=== PATIENT | female | born 1970 | race Caucasian/White ===

== ENCOUNTER 2017-09-04 21:09 | Inpatient (IN) | payer OTHER ==
[2017-09-04 20:00] VITALS: BP 151/67; PULSE 88; RESP 18; TEMP 97.4; O2SAT 100
[2017-09-04] MEDS ORDERED: MEGESTROL ACETATE 40 MG TAB PO ONE (21:30)
--- NOTE | 2017-09-04 21:58 | HHI.HP ---
HPI Service CP Hospitalists Primary Care Physician No Primary Care Physician Admission Diagnosis Menorrhagia with symptomatic anemia Chief Complaint: Lightheadedness, fatigue, palpitations Travel History International Travel<30 Days: No Contact w/Intl Traveler <30 Da: No History of Present Illness 47-year-old female history of heavy vaginal bleeding due to fibroids presents as transfer for admission to [facility] for heavy vaginal bleeding with hemoglobin of 5.5. She has associated lightheadedness, weakness, dizziness, and palpitations. This current menstrual cycle has lasted 10 days. Associated symptoms have been ongoing for the past 2 days. In the beginning this menstrual cycle she was soaking through 1 large tampon per hour. She has also been having large clots. She has been dealing with severe vaginal bleeding for the past 2 years but has not followed up with an COUNTY DEMONSTRATOR. Never needed to be hospitalized for anemia and never required a blood transfusion in the past. Does not been following regularly with primary care physician so is not sure of her baseline hemoglobin. She does not take iron. She denies abdominal pain or significant cramping. No other chronic medical conditions or daily medications. She does not have an COUNTY DEMONSTRATOR. She had a tubal ligation in 1996. Vital signs have remained stable. She was a little tachycardic initially. Review of Systems Constitutional: COMPLAINS OF: Fatigue, Dizziness Endocrine: COMPLAINS OF: Abnorml menstrual pattern, DENIES: Heat/cold intolerance, Polydipsia, Polyuria, Polyphagia Eyes: DENIES: Blurred vision, Diplopia, Eye inflammation, Eye pain, Vision loss , Photosensitivity, Double Vision Ears, nose, mouth, throat: DENIES: Tinnitus, Hearing loss, Vertigo, Nasal discharge, Oral lesions, Throat pain, Hoarseness, Ear Pain, Running Nose, Epistaxis, Sinus Pain, Toothache, Odynophagia Respiratory: COMPLAINS OF: Shortness of breath, DENIES: Apneas, Cough, Snoring , Wheezing, Hemoptysis, Sputum production Cardiovascular: COMPLAINS OF: Palpitations, DENIES: Chest pain, Syncope, Dyspnea on Exertion, PND, Lower Extremity Edema, Orthopnea, Claudication Gastrointestinal: DENIES: Abdominal pain, Black stools, Bloody stools, BRB per rectum, Constipation, Diarrhea, GERD, Nausea, Reflux, Vomiting, Difficulty Swallowing, Anorexia, See HPI Genitourinary: COMPLAINS OF: Abnormal vaginal bleeding, DENIES: Dysmenorrhea, Dyspareunia, Sexual dysfunction, Urinary frequency, Urinary incontinence, Urgency, Hematuria, Dysuria, Nocturia, Vaginal discharge Integumentary: DENIES: Abnormal pigmentation, Pruritus, Rash, Nail changes, Breast masses, Breast skin changes, Nipple discharge Hematologic/lymphatic: DENIES: Bruising, Lymphadenopathy Immunologic/allergic: DENIES: Eczema, Urticaria Neurologic: DENIES: Abnormal gait, Headache, Localized weakness, Paresthesias, Seizures, Speech Problems, Tremor, Poor Balance Psychiatric: DENIES: Anxiety, Confusion, Mood changes, Depression, Hallucinations, Agitation, Suicidal Ideation, Homicidal Ideation, Delusions, History of Bipolar, History of Schizophrenia Past Family Social History Past Medical History Obesity, uterine fibroids, abnormal uterine bleeding Past Surgical History Bilateral tubal ligation 1996 Reported Medications None Allergies: Coded Allergies: No Known Allergies (Unverified , 09/04/17) Family History No bleeding disorders. 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 SKIN: No rashes, ecchymoses or lesions. Cool and dry. No petechiae. HEAD: Atraumatic. Normocephalic. No temporal or scalp tenderness. EYES: Pupils equal round and reactive. Extraocular motions intact. No scleral icterus. No injection or drainage. ENT: Nose without bleeding, purulent drainage or septal hematoma. Airway patent. NECK: Trachea midline. No JVD or lymphadenopathy. Supple, nontender, no meningeal signs. CARDIOVASCULAR: Regular rate and rhythm with soft 1/6 systolic ejection murmur. No gallop or rub. RESPIRATORY: Clear to auscultation. Breath sounds equal bilaterally. No wheezes , rales, or rhonchi. GASTROINTESTINAL: Abdomen soft, non-tender, nondistended. No hepato-splenomegaly , or palpable masses. No guarding. MUSCULOSKELETAL: Extremities without clubbing, cyanosis, or edema. No joint tenderness, effusion, or edema noted. No calf tenderness. NEUROLOGICAL: Awake and alert. Cranial nerves II through XII intact. Motor and sensory grossly within normal limits. Five out of 5 muscle strength in all muscle groups. Normal speech. Caprini VTE Risk Assessment Caprini VTE Risk Assessment: No/Low Risk (score <= 1) Caprini Risk Assessment Model Point Value = 1 Point Value = 2 Point Value = 3 Point Value = 5 Age 41-60 Minor surgery BMI > 25 kg/m2 Swollen legs Varicose veins or History of unexplained or recurrent spontaneous Oral contraceptives or hormone replacement Sepsis (< 1 month) Serious lung disease, including pneumonia (< 1 month) Abnormal pulmonary function Acute myocardial infarction Congestive heart failure (< 1 month) History of inflammatory bowel disease Medical patient at bed rest Age 61-74 Arthroscopic surgery Major open surgery (> 45 min) Laparoscopic surgery (> 45 min) Malignancy Confined to bed (> 72 hours) Immobilizing plaster cast Central venous access Age >= 75 History of VTE Family history of VTE Factor V Leiden Prothrombin [id number] Lupus anticoagulant Anticardiolipin antibodies Elevated serum homocysteine Heparin-induced thrombocytopenia Other congenital or acquired thrombophilia Stroke (< 1 month) Elective arthroplasty Hip, pelvis, or leg fracture Acute spinal cord injury (< 1 month) Prophylaxis Regimen Total Risk Factor Score Risk Level Prophylaxis Regimen 0-1 Low Early ambulation 2 Moderate Order ONE of the following: *Sequential Compression Device (SCD) *Heparin 5000 units SQ BID 3-4 Higher Order ONE of the following medications: *Heparin 5000 units SQ TID *Enoxaparin/Lovenox 40 mg SQ daily (WT < 150 kg, CrCl > 30 mL/min) *Enoxaparin/Lovenox 30 mg SQ daily (WT < 150 kg, CrCl > 10-29 mL/min) *Enoxaparin/Lovenox 30 mg SQ BID (WT < 150 kg, CrCl > 30 mL/min) AND/OR *Sequential Compression Device (SCD) 5 or more Highest Order ONE of the following medications: *Heparin 5000 units SQ TID (Preferred with Epidurals) *Enoxaparin/Lovenox 40 mg SQ daily (WT < 150 kg, CrCl > 30 mL/min) *Enoxaparin/Lovenox 30 mg SQ daily (WT < 150 kg, CrCl > 10-29 mL/min) *Enoxaparin/Lovenox 30 mg SQ BID (WT < 150 kg, CrCl > 30 mL/min) AND *Sequential Compression Device (SCD) Assessment and Plan Problem List: (1) Menorrhagia, premenopausal ICD Codes: N92.4 - Excessive bleeding in the premenopausal period Status: Chronic Plan: Seems to be worse of late with current menses. Patient somewhat symptomatic with hemoglobin of 5.5. We'll transfuse 2 units PRBCs. Vital signs relatively stable. THERMAL ENGINEER consult. Pelvic ultrasound ordered. Provide dose of Megace based on THERMAL ENGINEER recommendations to ER provider. (2) Anemia ICD Codes: D64.9 - Anemia, unspecified Plan: Transfusion as noted. Vital signs relatively stable. Code Status full Discussed Condition With Patient and ER provider Physician Certification 2 Midnight Certification Type: Admission for Inpatient Services Order for Inpatient Services The services are ordered in accordance with Medicare regulations or non- Medicare payer requirements, as applicable. In the case of services not specified as inpatient-only, they are appropriately provided as inpatient services in accordance with the 2-midnight benchmark. Estimated LOS (days): 2 days is the estimated time the patient will need to remain in the hospital, assuming treatment plan goals are met and no additional complications. Post-Hospital Plan: Home Problem Qualifiers (1) Anemia: Qualified Codes: D50.0 - Iron deficiency anemia secondary to blood loss ( chronic) Simone Gleason MD PhD Sep 04, 2017 21:58
[2017-09-04 23:05] VITALS: BP 128/60; PULSE 84; RESP 18; TEMP 97.1; O2SAT 99
[2017-09-04 23:27] VITALS: BP 138/65; PULSE 92; RESP 18; TEMP 97.7; O2SAT 98
[2017-09-05] VITALS: BP 123/60; PULSE 101; RESP 18; TEMP 97.3; O2SAT 97
[2017-09-05 04:00] VITALS: BP 139/61; PULSE 79; RESP 18; TEMP 97.1; O2SAT 98
[2017-09-05 08:00] VITALS: BP 140/65; PULSE 106; RESP 18; TEMP 97.8; O2SAT 98
--- NOTE | 2017-09-05 09:35 | PD.CONS ---
HPI Chief Complaint Vaginal bleeding resulting in anemia Date Seen: Sep 05, 2017 Time Seen: 08:30 Travel History International Travel<30 Days: No Contact w/Intl Traveler<30Days: No Known Affected Area: No History of Present Illness HPI Patient is 47-year-old white female para 2 status post tubal ligation presents with anemia secondary to heavy menstrual flow. Patient's bleeding about 10-12 days. These are heavy periods with large clots but no pain. She presents with a hemoglobin of 5.5 hematocrit 21%. She states she's been years of heavy menstrual flows and never really tried any treatment for this. She just wanted to" stick it out" she says. Last Pap smear was 8 years ago and the last ultrasound was 15 years ago that she does have a history of fibroids in the uterus. Menstrual cycles are approximately every month but it begun heavier and heavier over the years. She states that when she was very young she took control pills well tolerated them well but only get this temporarily and she has a tubal ligation of her last baby[ both babies born vaginally] Para: 2 : 2 Last Menstrual Period: Sep 05, 2017 Miscarriage: 0 : 0 History Obstetric History Obstetric History 2 vaginal deliveries Social History Alcohol Use: No Tobacco Use: No Substance Abuse: No Allergies-Medications (Allergen,Severity, Reaction): Coded Allergies: No Known Allergies (Unverified , 09/04/17) Home Meds No Active Prescriptions or Reported Meds Review of Systems General / Constitutional: No: Fever, Weight Gain, Chills, Other Eyes: No: Diploplia, Blurred Vision, Visual changes, Pain, Photophobia HENT: No: Headaches, Vertigo, Lightheadedness Cardiovascular: No: Irregular Rhythm, Chest Pain or Discomfort, Palpitations, Tachycardia, Syncope, Varicosities, Edema, Cyanosis Respiratory: No: Cough, Short of Breath, Other Gastrointestinal: No: Nausea, Vomiting, Diarrhea Genitourinary: Vaginal Bleeding, No: Decreased Urinary Output, Oliguria Musculoskeletal: No: Limited ROM, Weakness, Cramping, Edema, Pain Skin: No Rash, No Itching, No Dryness, No Lumps, No Change in Pigmentation, No Change in Nails, No Alopecia, No Lesions Neurologic: No: Weakness, Dizziness, Syncope, Focal Abnormalities, Coordination Problem, Headache, Slurred Speech, Seizures Psychiatric: No: Depression, Suicidal Ideations, Homicidal Ideation Endocrine: No: Heat Intolerance, Cold Intolerance, Polydipsia, Polyuria, Other Physical Exam Vital Signs Date Time Temp Pulse Resp B/P (MAP) Pulse Ox O2 Delivery O2 Flow Rate FiO2 09/05/17 08:00 97.8 106 18 140/65 (90) 98 09/05/17 04:00 97.1 79 18 139/61 (87) 98 09/05/17 00:00 97.3 101 18 123/60 (81) 97 09/04/17 23:27 97.7 92 18 138/65 98 09/04/17 23:05 97.1 84 18 128/60 99 09/04/17 20:00 97.4 88 18 151/67 (95) 100 Narrative GENERAL: Well-nourished, well-developed obese patient. SKIN: Warm and dry. HEAD: Normocephalic and atraumatic. EYES: No scleral icterus. No injection or drainage. ENT: No nasal drainage noted. Mucous membranes pink. Airway patent. NECK: Supple, trachea midline. No JVD. CARDIOVASCULAR: Regular rate and rhythm without murmurs, gallops, or rubs. RESPIRATORY: Breath sounds equal bilaterally. No accessory muscle use. BREASTS: Bilateral exam showed no masses , no retractions, no nipple discharge. ABDOMEN/GI: Abdomen soft obese, non-tender, bowel sounds present, no rebound, no guarding : External Genitalia: intact and normal in appearance BUS glands: [-] Cervix: [normal-] uterus is enlarges approx 18 wk size but obesity compromises exam , no adnexal masses noted , nontender EXTREMITIES: No cyanosis or edema. BACK: Nontender without obvious deformity. No CVA tenderness. NEUROLOGICAL: Awake and alert. Motor and sensory grossly within normal limits. Five out of 5 muscle strength in all muscle groups. Normal speech. Data Data Orders Orders Admit To Inpatient (09/04/17 ) Inpatient Certification (09/04/17 ) Vital Signs (Adult) KAREN.Q4H (09/04/17 21:29) Activity Oob With Assistance (09/04/17 21:29) Diet Regular Basic (09/05/17 Breakfast) Megestrol (Megace) (09/04/17 21:30) Blood Product Administration (09/04/17 21:29) Red Blood Cells (Rbc) (09/04/17 21:29) Consult Gynecology (09/04/17 ) Beta Hcg (Quant/Titer) (09/04/17 21:34) Complete Blood Count With Diff (09/05/17 06:00) Scd Bilateral/Knee High KAREN.QSHIFT (09/04/17 21:58) Sleeve, Knee Sequential Héctor Pr (09/04/17 22:09) (Hub Use Only)Inp Phy Cons/Ref (09/04/17 ) Pneumococcal-23 Polyvalent Inj (Pneumova (09/06/17 10:00) Us Pelvis Comp W Transvaginal (09/05/17 ) MDM Interpretation(s) Patient's 47-year-old white female para 2 with a long history of menorrhagia and hypermenorrhea with resulting anemia at this time. She has received 2 units of blood and the pending the posttransfusion hematocrit. She has just stopped bleeding at this point only having minimal spotting now and she's never any pain with any of this. Plan Patient was counseled as to treatment options for heavy periods and prolonged periods.Will need to await the US findings prior to definitive treatment plan however, Medically she could be treated with potentially hormone therapy in the form of control pills she is a nonsmoker 47 years old and potentially could take pills short-term for 12--18 months. Also she could use either injectable Provera, or an IUD Mirena that has a side effect of minimal or no periods due to Progestational effect. Also could be related using transexamic acid on a semi-regular basis to keep her flow minimal or decreased. Surgically the patient could have endometrial ablation D&C hysteroscopy which has a 80% chance of decreasing her flow to much less than she seeing now and a 50% chance of no more periods and this procedure could be done in an office setting but usually done as a one-day surgery. Regardless the pt should have an endometrial biopsy to R/O malignancy; Dr. Zavaleta is a ACOUSTICS TEACHER doctor vice president of talent acquisition as well as when the patient came in, and the patient has her phone number for the office Diagnosis: hypermenorrhea fibroids Scripts No Active Prescriptions or Reported Meds Mukesh Navarrete II, MD Sep 05, 2017 09:35
--- NOTE | 2017-09-05 09:56 | HHI.PR ---
Subjective Remarks Patient reports feeling much better no longer dizzy, no longer having palpations reports vagina bleeding has decreased greatly after Megace Objective Vitals Vital Signs Date Time Temp Pulse Resp B/P (MAP) Pulse Ox O2 Delivery O2 Flow Rate FiO2 09/05/17 08:00 97.8 106 18 140/65 (90) 98 09/05/17 04:00 97.1 79 18 139/61 (87) 98 09/05/17 00:00 97.3 101 18 123/60 (81) 97 09/04/17 23:27 97.7 92 18 138/65 98 09/04/17 23:05 97.1 84 18 128/60 99 09/04/17 20:00 97.4 88 18 151/67 (95) 100 Objective Remarks GENERAL: This is a well-nourished, well-developed patient, in no apparent distress. CARDIOVASCULAR: Regular rate and rhythm RESPIRATORY: Clear to auscultation. Breath sounds equal bilaterally. GASTROINTESTINAL: Abdomen soft, non-tender, nondistended. Normal active bowel sounds MUSCULOSKELETAL: Extremities without clubbing, cyanosis, or edema. NEURO: Alert & Oriented x4 to person, place, time, situation. Moves all ext x4 Procedures none A/P Problem List: (1) Menorrhagia, premenopausal ICD Codes: N92.4 - Excessive bleeding in the premenopausal period Status: Chronic Plan: 47 year old patient dx with uterine fibroids 1996 Heavy menses for the past 4 months Seems to be worse of late with current menses for the past 12 days On admission patient symptomatic with palpitations and dizziness with standing hemoglobin of 5.5. s/p transfuse 2 units PRBCs (09/04), symptoms improved MVC 65.4 iron profile requested on the blood drawn prior to transfusion TILE DITCHER consult, appreciate input Pelvic ultrasound pending Provide dose of Megace based on TILE DITCHER recommendations to ER provider. DVT prophylaxis with SCDs (2) Anemia ICD Codes: D64.9 - Anemia, unspecified Plan: see above Problem Qualifiers (1) Anemia: Qualified Codes: D50.0 - Iron deficiency anemia secondary to blood loss ( chronic) Aspen Christianson Sep 05, 2017 09:56
[2017-09-05 10:59] LABS: AUTOMATED NEUTROPHIL # 9.2 TH/MM3 (1.8-7.7); BASOPHIL # 0.1 TH/MM3 (0-0.2); BASOPHIL % 0.5 % (0.0-2.0); EOSINOPHIL # 0.3 TH/MM3 (0-0.4); EOSINOPHIL % 2.7 % (0.0-4.0); HEMATOCRIT 24.2 % (35.0-46.0); LYMPH % 12.7 % (9.0-44.0); LYMPHOCYTE # 1.5 TH/MM3 (1.0-4.8); MEAN CELL VOLUME 64.3 FL (80.0-100.0); MEAN CORPUSCULAR HEMOGLOBIN 19.8 PG (27.0-34.0); MEAN CORPUSCULAR HGB CONC 30.7 % (32.0-36.0); MONO % 6.3 % (0.0-8.0); NEUT % 77.8 % (16.0-70.0); PLATELET COUNT 349 TH/MM3 (150-450); RED BLOOD COUNT 3.76 MIL/MM3 (4.00-5.30); RED CELL DISTRIBUTION WIDTH 26.6 % (11.6-17.2); WHITE BLOOD COUNT 11.8 TH/MM3 (4.0-11.0)
[2017-09-05 11:05] LABS: HEMO FLAGS AUTO DIFF
[2017-09-05 11:29] LABS: BETA HCG QUANT LESS THAN 1 MIU/ML (0-5)
--- NOTE | 2017-09-05 11:37 | RADRPT ---
EXAM DATE/TIME: 09/05/2017 10:26 [facility] COMPARISON: No previous studies available for comparison. INDICATIONS : Abnormal uterine bleeding. Lightheaded, dizziness. weakness. MEDICAL HISTORY : GERD. Fibroids. SURGICAL HISTORY : Tubal ligation. ENCOUNTER: Initial ACUITY: 2 weeks PAIN SCORE: 1/10 LOCATION: Bilateral pelvis MEASUREMENTS: UTERUS: 17.7 x 9.5 x 11.7 cm ENDOMETRIAL STRIPE: >20 mm RIGHT OVARY: 3.5 x 2.7 x 3.4 cm LEFT OVARY: 6.8 x 5.4 x 6.2 cm FINDINGS: UTERUS: Marked endometrial thickening is identified. Small amount of fluid is identified in the endometrial c anal. The uterus is enlarged. There are 2 myometrial lesions. A cystic lesion measuring 5.3 cm in siz e is identified in the body of the uterus. A solid myometrial mass is identified in the body the uter us measuring 3.7 cm. RIGHT OVARY: A right ovary contains a 1.9 cm cyst. LEFT OVARY: The left artery is enlarged. 2 dominant cysts are identified. One measuring 4.2 cm and the second of 2.7 cm. Normal blood flow is identified. MISCELLANEOUS: No free fluid. CONCLUSION: 1. Marked endometrial thickening. Proliferative versus neoplastic process needs to be considered. 2. Solid myometrial mass characteristic of a small leiomyoma. 3. Bilateral ovarian cysts with 4.2 cm dominant left ovarian cyst. Alexey Chaney MD on September 05, 2017 at 11:28 Board Certified Radiologist. This report was verified electronically.
[2017-09-05 11:39] LABS: SCAN/DIFF AUTO DIFF CONFIRMED
[2017-09-05 12:00] VITALS: BP 136/62; PULSE 82; RESP 16; TEMP 97.3; O2SAT 99
[2017-09-05] MEDS ORDERED: FERR325T18 PO (12:41)
[2017-09-05] MEDS ORDERED: SODIUM CHLOR 0.9% 250 ML INJ 250 ML IV ONE (12:45)
--- NOTE | 2017-09-05 13:26 | HHI.DS ---
Discharge Summary Admission Date Sep 04, 2017 at 21:19 Discharge Date: Sep 05, 2017 Admitting Diagnosis Menorrhagia with symptomatic anemia (1) Menorrhagia, premenopausal ICD Codes: N92.4 - Excessive bleeding in the premenopausal period Status: Chronic (2) Anemia ICD Codes: D64.9 - Anemia, unspecified Consultants Dr. Navarrete Procedures none Brief History 47-year-old female history of heavy vaginal bleeding due to fibroids presents as transfer for admission to [facility] for heavy vaginal bleeding with hemoglobin of 5.5. She has associated lightheadedness, weakness, dizziness, and palpitations. This current menstrual cycle has lasted 10 days. Associated symptoms have been ongoing for the past 2 days. In the beginning this menstrual cycle she was soaking through 1 large tampon per hour. She has also been having large clots. She has been dealing with severe vaginal bleeding for the past 2 years but has not followed up with an MANAGER SALES TRAINING. Never needed to be hospitalized for anemia and never required a blood transfusion in the past. Does not been following regularly with primary care physician so is not sure of her baseline hemoglobin. She does not take iron. She denies abdominal pain or significant cramping. No other chronic medical conditions or daily medications. She does not have an MANAGER SALES TRAINING. She had a tubal ligation in 1996. Vital signs have remained stable. She was a little tachycardic initially. CBC/BMP: 09/05/17 1029 Significant Findings Laboratory Tests Test 09/05/17 10:29 White Blood Count 11.8 TH/MM3 (4.0-11.0) Red Blood Count 3.76 MIL/MM3 (4.00-5.30) Hemoglobin 7.4 GM/DL (11.6-15.3) Hematocrit 24.2 % (35.0-46.0) Mean Corpuscular Volume 64.3 FL (80.0-100.0) Mean Corpuscular Hemoglobin 19.8 PG (27.0-34.0) Mean Corpuscular Hemoglobin Concent 30.7 % (32.0-36.0) Red Cell Distribution Width 26.6 % (11.6-17.2) Neutrophils (%) (Auto) 77.8 % (16.0-70.0) Neutrophils # (Auto) 9.2 TH/MM3 (1.8-7.7) Imaging Last Impressions Pelvis Ultrasound 09/05/17 0000 Signed Impressions: Service Date/Time: Tuesday, September 05, 2017 10:26 - CONCLUSION: 1. Marked endometrial thickening. Proliferative versus neoplastic process needs to be considered. 2. Solid myometrial mass characteristic of a small leiomyoma. 3. Bilateral ovarian cysts with 4.2 cm dominant left ovarian cyst. Alexey Chaney MD PE at Discharge GENERAL: This is a well-nourished, well-developed patient, in no apparent distress. CARDIOVASCULAR: Regular rate and rhythm RESPIRATORY: Clear to auscultation. Breath sounds equal bilaterally. GASTROINTESTINAL: Abdomen soft, non-tender, nondistended. Normal active bowel sounds MUSCULOSKELETAL: Extremities without clubbing, cyanosis, or edema. NEURO: Alert & Oriented x4 to person, place, time, situation. Moves all ext x4 Hospital Course Menorrhagia, premenopausal 47 year old patient dx with uterine fibroids 1997 Heavy menses for the past 4 months Seems to be worse of late with current menses for the past 12 days On admission patient symptomatic with palpitations and dizziness with standing hemoglobin of 5.5. MVC 65.4 iron profile requested on the blood drawn prior to transfusion s/p transfuse 2 units PRBCs (09/04), symptoms improved (09/05) 7.4, hematocrit 24.2 post infusion Provide dose of Megace based on RESEARCH DEVELOPMENT MANAGER recommendations to ER provider. RESEARCH DEVELOPMENT MANAGER consult, appreciate input Pelvic ultrasound reviewed and reveals: Marked endometrial thickening. Proliferative versus neoplastic process needs to be considered. Solid myometrial mass characteristic of a small leiomyoma. Bilateral ovarian cysts with 4.2cm dominant left ovarian cyst. Discussed the results of work up with the patient discussed the possibility of uterine cancer. Patient verbalized understanding and agreed to follow up with outpatient RESEARCH DEVELOPMENT MANAGER for further evaluation and possible bx Patient also agreed to follow up with PCP as well for evaluation and possible iron infusions. Plan to give one additional unit of blood, Venofer 200 mg IV then DC home with follow up instructions. patient has also been instructed to start ferrous sulfate PO DVT prophylaxis with SCDs Anemia see above Pt Condition on Discharge: Stable Discharge Disposition: Discharge Home Discharge Instructions DIET: Follow Instructions for: As Tolerated, No Restrictions Activities you can perform: Regular-No Restrictions Follow up Referrals: MANAGER SALES TRAINING - 1 Week with Sylvie Balderas MD PCP Follow-up - [address] Jordan New Medications: Ferrous Sulfate (Ferrous Sulfate) 325 Mg (65 Mg Iron) Tablet 325 MG PO DAILY for Nutritional Supplement, #30 TAB 0 Refills Aspen Christianson Sep 05, 2017 13:26
[2017-09-05] MEDS ORDERED: IRON SUCROSE INJ 200 MG in SODIUM CHLORIDE 0.9% INJ 100 ML IV ONE (14:00)
[2017-09-05 14:34] LABS: TRANSFERRIN IRON PROFILE 359 MG/DL (200-360)
[2017-09-05 16:03] VITALS: BP 141/70; PULSE 87; RESP 20; TEMP 97.5; O2SAT 98
[2017-09-05 19:46] VITALS: BP 122/57; PULSE 85; RESP 16; TEMP 98.4; O2SAT 96
[2017-09-06] MEDS ORDERED: PNEUMOCOCCAL POLYVALENT INJ 25 MCG/0.5 ML SYR IM ONE (10:00)
== END 2017-09-05 19:37 | disposition home or self-care (01) | DRG 761 ==
LOC: NEDDLT 21:09 → N07B 21:19
PROVIDERS: ADMIT Hospitalist; ATTEND Hospitalist
PROC: 30233N1 Transfusion of Nonautologous Red Blood Cells into Peripheral Vein, Percutaneous Approach (ICD-10-PCS; principal; 2017-09-04)
DX: N92.4 Excessive bleeding in the premenopausal period (principal); D25.9 Leiomyoma of uterus, unspecified; N92.0 Excessive and frequent menstruation with regular cycle; D50.0 Iron deficiency anemia secondary to blood loss (chronic); R00.0 Tachycardia, unspecified; Z98.51 Tubal ligation status; Z87.891 Personal history of nicotine dependence; E66.9 Obesity, unspecified; N83.202 Unspecified ovarian cyst, left side; N83.201 Unspecified ovarian cyst, right side
CPT/HCPCS: 36430; 76856; 80053; 82728; 83540; 83550; 84702; 85025; 85610; 85730; 86850; 86900; 86901; 86920; 93005; J1756; J7030; J7050; P9016

== ENCOUNTER → 2017-11-13 | Outpatient (CLI) | payer OTHER ==
[~2017-11-13] MED LIST: FERR325T18 PO; MEGE40SU PO; MULT-65 PO; VITA10004 PO
[2017-11-13 15:39] LABS: AUTOMATED NEUTROPHIL # 13.7 TH/MM3 (1.8-7.7); BASOPHIL % 0.3 % (0.0-2.0); EOSINOPHIL # 0.1 TH/MM3 (0-0.4); EOSINOPHIL % 0.8 % (0.0-4.0); HEMOGLOBIN 11.7 GM/DL (11.6-15.3); MEAN CELL VOLUME 78.8 FL (80.0-100.0); MEAN CORPUSCULAR HEMOGLOBIN 26.3 PG (27.0-34.0); MEAN CORPUSCULAR HGB CONC 33.3 % (32.0-36.0); MEAN PLATELET VOLUME 8.4 FL (7.0-11.0); MONO % 6.1 % (0.0-8.0); NEUT % 80.8 % (16.0-70.0); PLATELET COUNT 398 TH/MM3 (150-450); RED BLOOD COUNT 4.44 MIL/MM3 (4.00-5.30); RED CELL DISTRIBUTION WIDTH 18.1 % (11.6-17.2); WHITE BLOOD COUNT 16.9 TH/MM3 (4.0-11.0)
[2017-11-13 15:51] LABS: PROTHROMBIN TIME - PATIENT 10.6 SEC (9.8-11.6)
[2017-11-13 15:53] LABS: ALT (GPT) 120 U/L (10-53); AST (GOT) 62 U/L (15-37); BICARBONATE 22.1 MEQ/L (21.0-32.0); BLOOD UREA NITROGEN 9 MG/DL (7-18); CALCIUM 8.9 MG/DL (8.5-10.1); CHLORIDE 104 MEQ/L (98-107); CREATININE 0.64 MG/DL (0.50-1.00); GLOMERULAR FILTRATION RATE 99 ML/MIN (>89); GLUCOSE,FASTING 91 MG/DL (74-99); SODIUM (NA) 137 MEQ/L (136-145)
[2017-11-13 15:58] LABS: ALKALINE PHOSPHATASE 75 U/L (45-117); TOTAL BILIRUBIN ADULT 0.7 MG/DL (0.2-1.0); TOTAL PROTEIN 7.9 GM/DL (6.4-8.2)
--- NOTE | 2017-11-13 16:12 | RADRPT ---
EXAM DATE/TIME: 11/13/2017 15:49 [facility] COMPARISON: No previous studies available for comparison. INDICATIONS : Evaluate for pneumonia, pneumothorax, or communicable disease. Pre op hysterectomy. MEDICAL HISTORY : None. SURGICAL HISTORY : None. ENCOUNTER: Initial ACUITY: 1 day PAIN SCORE: 0/10 LOCATION: Bilateral chest FINDINGS: PA and lateral views of the chest demonstrate the lungs to be symmetrically aerated without evidence of mass, infiltrate or effusion. The cardiomediastinal contours are unremarkable. Osseous structure s are intact. CONCLUSION: 1. No acute cardiopulmonary findings. Michele Hagan MD on November 13, 2017 at 16:10 Board Certified Radiologist. This report was verified electronically.
[2017-11-13 17:15] LABS: BANDS 5 % (0-6); LYMPHOCYTES 12 % (9-44); MONOCYTES 5 % (0-8); NEUTROPHIL # MANUAL DIFF 13.7 TH/MM3 (1.8-7.7); POLYS (SEG NEUTROPHILS) 76 % (16-70)
[2017-11-13 17:16] LABS: TOXIC GRANULATION 2+ (NORMAL)
[2017-11-13 17:17] LABS: KERATOCYTES 1+ (NORMAL); OVALOCYTES 1+ (NORMAL)
--- NOTE | 2017-11-14 18:24 | EKG ---
Date Performed: 11/13/2017 Time Performed: 15:01:56 PTAGE: 47 years EKG: SINUS TACHYCARDIA ST DEVIATION AND MODERATE T-WAVE ABNORMALITY, CONSIDER ANTEROLATERAL ISCH EMIA ST DEVIATION AND MODERATE T-WAVE ABNORMALITY, CONSIDER INFERIOR ISCHEMIA ABNORMAL ECG NO PREVIOUS TRACING DOCTOR: Gladys Garcia Interpretating Date/Time 11/14/2017 18:20:19
== END ==
LOC: CPRE 14:36
PROVIDERS: ATTEND Obstetrics & Gynecology Gynecologic Oncology
DX: Z01.812 Encounter for preprocedural laboratory examination (principal); Z01.810 Encounter for preprocedural cardiovascular examination; Z01.811 Encounter for preprocedural respiratory examination; C54.1 Malignant neoplasm of endometrium; R94.31 Abnormal electrocardiogram [ECG] [EKG]
CPT/HCPCS: 36415; 71046; 80053; 84703; 85007; 85027; 85610; 85730; 86304; 93005

== ENCOUNTER 2017-11-23 08:18 | Inpatient (IN) | payer OTHER ==
[~2017-11-23] VITALS: Ht 172.7 cm; Wt 127.3 kg
[2017-11-23] VITALS (11 sets, daily range): BP systolic 148–178; BP diastolic 54–96; PULSE 68–100; RESP 16–19; TEMP 96.9–98.9; O2SAT 96–98
[2017-11-23] MEDS ORDERED: AMLO5 PO (09:09)
[2017-11-23] MEDS ORDERED: ONDANSETRON HCL 4 MG/2 ML VIAL IV PUSH SCH (09:15)
[2017-11-23] MEDS ORDERED: ceFAZolin 2 GM PREMIX 50 ML IV SCH (09:15)
[2017-11-23] MEDS ORDERED: KETOROLAC TROMETHAMINE 30 MG/ML (IVP) VIAL IV PUSH SCH (09:15)
[2017-11-23] MEDS ORDERED: DIAZEPAM 10 MG TAB PO SCH (09:15)
[2017-11-23] MEDS ORDERED: SODIUM CHLOR 0.9% 1000 ML INJ 1,000 ML IV SCH (09:30)
[2017-11-23] MEDS ORDERED: MIDAZOLAM HCL 2 MG/2 ML VIAL ONE ×3 (10:38→11:23)
[2017-11-23] MEDS ORDERED: GELATIN 12 MM/7 MM FOAM I-ARTERIAL ONE (12:00)
[2017-11-23] MEDS ORDERED: IODIXANOL 320 MG/ML 50 ML VIAL (for RAD SPEC) I-ARTERIAL ONE (12:00)
[2017-11-23] MEDS ORDERED: MORPHINE SULFATE 4 MG/ML INJ ONE (12:32)
[2017-11-23] MEDS ORDERED: NALOXONE HCL 0.4 MG/ML AMP IV PUSH PRN (13:00)
[2017-11-23] MEDS ORDERED: MORPHINE SULFATE 30 MG/30 ML PCA IV SCH (13:00)
[2017-11-23] MEDS: SODIUM CHLOR 0.9% 1000 ML INJ 1,000 ML IV SCH ×2 (13:00→21:59)
[2017-11-23] MEDS ORDERED: ONDANSETRON HCL 4 MG/2 ML VIAL IV PUSH PRN (13:00)
[2017-11-23] MEDS ORDERED: ACETAMINOPHEN 325 MG TAB PO PRN (13:00)
[2017-11-23] MEDS ORDERED: HYDROmorphone HCL PF 2 MG/ML VIAL ONE (13:06)
--- NOTE | 2017-11-23 13:58 | HHI.HP ---
[facility] Juanita Jordan M.D. Admission Diagnosis Diagnoses: Chief Complaint: Endometrial cancer Travel History International Travel<30 Days: No Contact w/Intl Traveler <30 Da: No Traveled to Known Affected Are: No History of Present Illness The patient is a very pleasant 47-year-old female with history of endometrial cancer with markedly enlarged uterus following Dr. Hurley oncologist outpatient , patient with h/o heavy irregular bleeding and anemia she was also transfused in the past, also h/o HTN. Patient came today for embolization of uterine artery by IR. The patient was seen in PACU today. She is on SYSTEMS PROTECTION TECHNICIAN pump. Says she had pain before however now the pain is better controlled. Blood pressure is also noted elevated propr. Restart home medications. Pain is much better controlled now. No vaginal bleeding. Patient denies any nausea, vomiting, no diarrhea or constipation. No chest pain or shortness of breath. Review of Systems Except as stated in HPI: all other systems reviewed are Neg Past Family Social History Past Medical History Endometrial cancer Heavy bleeding Uterine fibroids Hypertension Past Surgical History Tubal ligation 1996 Maxillofacial surgery in 1979 Reported Medications Reported Meds & Active Scripts Active Ferrous Sulfate 325 Mg (65 Mg Iron) Tablet 325 Mg PO DAILY Reported Norvasc (Amlodipine Besylate) 5 Mg Tab 5 Mg PO DAILY Megestrol Liq (Megestrol Acetate) 40 Mg/Ml Susp 200 Mg PO DAILY Vitamin B-12 Cr (Cyanocobalamin) 1,000 Mcg Tab 1,000 Mcg PO DAILY Multi-Vitamin Daily (Multiple Vitamin) 1 Tab Tab 1 Tab PO DAILY Allergies: Coded Allergies: No Known Allergies (Unverified , 11/13/17) Family History Her father has diabetes. Her mother is healthy Social History Occasional alcohol use. No illicit drug use. Quit smoking Physical Exam Vital Signs Vital Signs Date Time Temp Pulse Resp B/P (MAP) Pulse Ox O2 Delivery O2 Flow Rate FiO2 11/23/17 12:52 69 18 174/76 (108) 96 11/23/17 12:37 97.9 68 17 175/75 (108) 98 11/23/17 09:09 96 Room Air 11/23/17 09:09 98.9 100 16 154/96 [phone]) 73 Physical Exam GENERAL: This is a pleasant 47-year-old female, well-nourished, well-developed patient, in no apparent distress. SKIN: No rashes, ecchymoses or lesions. Cool and dry. HEAD: Atraumatic. Normocephalic. No temporal or scalp tenderness. EYES: Pupils equal round and reactive. Extraocular motions intact. No scleral icterus. No injection or drainage. ENT: Nose without bleeding, purulent drainage or septal hematoma. Throat without erythema, tonsillar hypertrophy or exudate. Uvula midline. Airway patent. NECK: Trachea midline. No JVD or lymphadenopathy. Supple, nontender, no meningeal signs. CARDIOVASCULAR: Regular rate and rhythm without murmurs, gallops, or rubs. RESPIRATORY: Clear to auscultation. Breath sounds equal bilaterally. No wheezes , rales, or rhonchi. GASTROINTESTINAL: Abdomen soft, obese, non-tender, nondistended. No hepato- splenomegaly, or palpable masses. No guarding. MUSCULOSKELETAL: Extremities without clubbing, cyanosis, or edema. No joint tenderness, effusion, or edema noted. No calf tenderness. Negative Homans sign bilaterally. NEUROLOGICAL: Awake and alert. Cranial nerves II through XII intact. Motor and sensory grossly within normal limits. Five out of 5 muscle strength in all muscle groups. Normal speech. Imaging Last Impressions Embolization, Transcatheter 11/23/17 0000 Signed Impressions: Service Date/Time: November 11:53 - CONCLUSION: Uncomplicated uterine artery embolization as above. MD Barry Mercadoi VTE Risk Assessment Caprini VTE Risk Assessment: Mod/High Risk (score >= 2) Caprini Risk Assessment Model Point Value = 1 Point Value = 2 Point Value = 3 Point Value = 5 Age 41-60 Minor surgery BMI > 25 kg/m2 Swollen legs Varicose veins or History of unexplained or recurrent spontaneous Oral contraceptives or hormone replacement Sepsis (< 1 month) Serious lung disease, including pneumonia (< 1 month) Abnormal pulmonary function Acute myocardial infarction Congestive heart failure (< 1 month) History of inflammatory bowel disease Medical patient at bed rest Age 61-74 Arthroscopic surgery Major open surgery (> 45 min) Laparoscopic surgery (> 45 min) Malignancy Confined to bed (> 72 hours) Immobilizing plaster cast Central venous access Age >= 75 History of VTE Family history of VTE Factor V Leiden Prothrombin [id number] Lupus anticoagulant Anticardiolipin antibodies Elevated serum homocysteine Heparin-induced thrombocytopenia Other congenital or acquired thrombophilia Stroke (< 1 month) Elective arthroplasty Hip, pelvis, or leg fracture Acute spinal cord injury (< 1 month) Prophylaxis Regimen Total Risk Factor Score Risk Level Prophylaxis Regimen 0-1 Low Early ambulation 2 Moderate Order ONE of the following: *Sequential Compression Device (SCD) *Heparin 5000 units SQ BID 3-4 Higher Order ONE of the following medications: *Heparin 5000 units SQ TID *Enoxaparin/Lovenox 40 mg SQ daily (WT < 150 kg, CrCl > 30 mL/min) *Enoxaparin/Lovenox 30 mg SQ daily (WT < 150 kg, CrCl > 10-29 mL/min) *Enoxaparin/Lovenox 30 mg SQ BID (WT < 150 kg, CrCl > 30 mL/min) AND/OR *Sequential Compression Device (SCD) 5 or more Highest Order ONE of the following medications: *Heparin 5000 units SQ TID (Preferred with Epidurals) *Enoxaparin/Lovenox 40 mg SQ daily (WT < 150 kg, CrCl > 30 mL/min) *Enoxaparin/Lovenox 30 mg SQ daily (WT < 150 kg, CrCl > 10-29 mL/min) *Enoxaparin/Lovenox 30 mg SQ BID (WT < 150 kg, CrCl > 30 mL/min) AND *Sequential Compression Device (SCD) Assessment and Plan Problem List: (1) Endometrial cancer ICD Code: C54.1 - Malignant neoplasm of endometrium (2) Menorrhagia, premenopausal ICD Code: N92.4 - Excessive bleeding in the premenopausal period Status: Chronic (3) Anemia ICD Code: D64.9 - Anemia, unspecified Assessment and Plan The patient is a very pleasant 47-year-old female with history of endometrial cancer with markedly enlarged uterus following Dr. Hurley oncologist outpatient , patient with heavy irregular bleeding and anemia she was also transfused. Patient was referred for embolization of uterine artery. Endometrial cancer with markedly enlarged uterus H/o heavy irregular bleeding and anemia she was also transfused in the past h/ h stable, Monitor Hypertension Dr. Hurley oncologist consulted IR also following S/p uterine artery embolization by IR 11/23/17 Pain controlled, currently on SYSTEMS PROTECTION TECHNICIAN pump Monitor H&H and transfuse if need Continue home medications as appropriate DVT prophylaxis SCDs/teds Discussed Condition With Patient, nurse Physician Certification 2 Midnight Certification Type: Admission for Inpatient Services Order for Inpatient Services The services are ordered in accordance with Medicare regulations or non- Medicare payer requirements, as applicable. In the case of services not specified as inpatient-only, they are appropriately provided as inpatient services in accordance with the 2-midnight benchmark. Estimated LOS (days): 3 days is the estimated time the patient will need to remain in the hospital, assuming treatment plan goals are met and no additional complications. Post-Hospital Plan: Home Gunjan Martinez MD Nov 23, 2017 13:58
[2017-11-23] MEDS: PCA - TOTAL MG MORPHINE DELIVERED PER SHIFT SCH ×2 (14:00→21:58)
--- NOTE | 2017-11-23 14:53 | RADRPT ---
EXAM DATE/TIME: 11/23/2017 11:53 [place] COMPARISON: No previous studies available for comparison. INDICATIONS : Patient with history of endometrial cancer in need of uterine artery embolization. MEDICAL HISTORY : Uterine fibroid, Anemia, Enlarged uterus SURGICAL HISTORY : Tubal ligation, Endometrial biopsy ENCOUNTER: Initial ACUITY: 3 months PAIN SCORE: 0/10 FLUORO TIME: 16.8 minutes IMAGE SERIES: 10 ACCESS SITE: Right Femoral artery SEDATION TIME: 90 minutes CONTRAST: 1.) 100 cc Visipaque (iodixanol) MEDICATION(S): 1.) 5.5 mg midazolam (Versed) IV 2.) 275 mcg fentanyl (Sublimaze) IV Prophylactic antibiotics were administered with appropriate pre-procedure timing. Vancomycin within 2 hrs of procedure, Ancef (or alternative) within 1 hr of procedure. DEVICE(S): 1.) Bilateral uterine artery 12-7mm Gelfoam 2.) Bilateral uterine artery 355-500 microns PVA 3.) Right common femoral artery Syvek pad PROCEDURE : 1. Ultrasound-guided puncture of the right common femoral artery. 2. Left internal iliac artery arteriogram. 3. Left uterine artery arteriogram. 4. Embolization of the left uterine artery. 5. Right internal iliac artery arteriogram. 6. Right uterine artery arteriogram. 7. Embolization of the right uterine artery. 8. Conscious sedation with continuous EKG and oximetry monitoring. The risks, benefits and alternatives to the procedure were explained and verbal and written consent w as obtained. The site was prepped in sterile fashion. Full sterile technique was used, including ca p, mask, sterile gloves and gown and a large sterile sheet. Hand hygiene and 2% chlorhexidine and/or betadine/alcohol prep was utilized per protocol for cutaneous antisepsis. Sterile gel and sterile p robe cover were utilized for ultrasound guidance. The skin and subcutaneous tissues were infiltrated with local anesthetic solution. With ultrasound and fluoroscopic guidance the right femoral artery was punctured. An Omni Flush cath eter was placed over aortic bifurcation into the left internal iliac artery where imaging was perform ed to identify the uterine artery. The uterine artery was subsequent catheterized and angiography wa s performed demonstrating multiple feeding vessels supplying the uterine fibroids. Embolization was performed using the prescribed size of polyvinyl alcohol and Gelfoam slurry to complete stasis. Foll owup angiography from the internal iliac vessel demonstrates complete stasis and no antegrade flow wi thin the left uterine artery. An Omni Flush catheter was then used to select the ipsilateral right internal iliac artery where imag ing was performed to identify the uterine artery. The uterine artery was subsequently catheterized a nd angiography was performed demonstrating multiple feeding vessels supplying the uterine fibroids. Embolization was performed using the prescribed dose of polyvinyl alcohol and Gelfoam slurry to compl ete stasis. Followup angiography from the internal iliac vessel demonstrates complete stasis and no antegrade flow within the left uterine artery. Conscious sedation was performed with the prescribed dosages and duration as above in the presence of an independent trained radiology nurse to assist in the monitoring of the patient. EKG and oximetry remained stable throughout the procedure. The patient tolerated the procedure well and there were n o complications. The patient was sent to post anesthesia recovery in stable condition. CONCLUSION: Uncomplicated uterine artery embolization as above. Christopher Fuller MD on November 23, 2017 at 14:51 Board Certified Radiologist. This report was verified electronically.
[2017-11-23] MEDS ORDERED: ENALAPRILAT 2.5 MG/2 ML VIAL IV PUSH PRN (16:00)
[2017-11-23] MEDS: amLODIPine BESYLATE 5 MG TAB PO SCH (18:10)
[2017-11-23] MEDS: KETOROLAC TROMETHAMINE 30 MG/ML (IVP) VIAL IV PUSH SCH ×2 (18:11→23:49)
[2017-11-24] VITALS: BP 135/63; PULSE 78; RESP 18; TEMP 97.6; O2SAT 96
[2017-11-24] MEDS: PCA - TOTAL MG MORPHINE DELIVERED PER SHIFT SCH (04:17)
[2017-11-24] MEDS: KETOROLAC TROMETHAMINE 30 MG/ML (IVP) VIAL IV PUSH SCH ×2 (04:17→11:55)
[2017-11-24 08:00] VITALS: BP 147/66; PULSE 79; RESP 18; TEMP 98; O2SAT 98
[2017-11-24] MEDS: amLODIPine BESYLATE 5 MG TAB PO SCH (08:51)
[2017-11-24] MEDS ORDERED: CYANOCOBALAMIN 1,000 MCG TAB PO SCH (09:00)
[2017-11-24] MEDS ORDERED: FERROUS SULFATE 325 MG (65 MG ELEMENTAL IRON) TAB PO SCH (09:00)
[2017-11-24] MEDS ORDERED: PNEUMOCOCCAL POLYVALENT INJ 25 MCG/0.5 ML SYR IM ONE (09:00)
[2017-11-24] MEDS: SODIUM CHLOR 0.9% 1000 ML INJ 1,000 ML IV SCH (09:00)
[2017-11-24] MEDS ORDERED: NON-FORMULARY DRUG (Multiple Vitamin (Multi-Vitamin Daily) 1 TAB) PO SCH (09:00)
[2017-11-24] MEDS ORDERED: MULTIVITAMIN TAB PO SCH (09:00)
[2017-11-24] MEDS ORDERED: MEGESTROL ACETATE SUSP 400 MG/10 ML CUP PO SCH (09:00)
--- NOTE | 2017-11-24 09:51 | HHI.PR ---
Subjective Remarks Follow-up of endometrial cancer status post embolization of history 11/24/17-patient seen and examined, reports improvement of pain. Denies any chest pain or shortness of breath. No acute event overnight. Objective Vitals Vital Signs Date Time Temp Pulse Resp B/P (MAP) Pulse Ox O2 Delivery O2 Flow Rate FiO2 11/24/17 08:00 98.0 79 18 147/66 (93) 98 11/24/17 04:17 16 11/24/17 04:16 16 11/24/17 00:00 97.6 78 18 135/63 (87) 96 11/23/17 21:58 19 11/23/17 20:00 96.9 80 18 148/70 (96) 96 11/23/17 16:15 97.0 77 16 154/78 (103) 96 11/23/17 15:22 74 16 162/54 (90) 97 11/23/17 14:52 72 17 163/54 (90) 96 11/23/17 14:22 76 16 164/66 (98) 97 11/23/17 14:00 18 11/23/17 13:52 68 18 165/68 (100) 97 11/23/17 13:36 16 11/23/17 13:22 79 18 178/72 (107) 98 11/23/17 13:07 74 19 174/73 (106) 97 11/23/17 12:52 69 18 174/76 (108) 96 11/23/17 12:37 97.9 68 17 175/75 (108) 98 11/23/17 12:37 18 I/O 11/23/17 11/23/17 11/23/17 11/24/17 11/24/17 11/24/17 07:00 15:00 23:00 07:00 15:00 23:00 Intake Total 150 ml 0 ml Output Total 1250 ml 300 ml Balance 150 ml -1250 ml -300 ml Intake Oral 0 ml IV Total 150 ml Output Urine Total 1250 ml 300 ml # Bowel Movements 0 Imaging Last Impressions Embolization, Transcatheter 11/23/17 0000 Signed Impressions: Service Date/Time: November 11:53 - CONCLUSION: Uncomplicated uterine artery embolization as above. Christopher Fuller MD Objective Remarks GENERAL: NAD SKIN: Warm and dry. HEAD: Normocephalic. EYES: No scleral icterus. No injection or drainage. NECK: Supple, trachea midline. No JVD or lymphadenopathy. CARDIOVASCULAR: Regular rate and rhythm without murmurs, gallops, or rubs. RESPIRATORY: Breath sounds equal bilaterally. No accessory muscle use. GASTROINTESTINAL: Abdomen soft, non-tender, nondistended. MUSCULOSKELETAL: No cyanosis, or edema. BACK: Nontender without obvious deformity. No CVA tenderness. A/P Problem List: (1) Endometrial cancer ICD Code: C54.1 - Malignant neoplasm of endometrium (2) Menorrhagia, premenopausal ICD Code: N92.4 - Excessive bleeding in the premenopausal period Status: Chronic (3) Anemia ICD Code: D64.9 - Anemia, unspecified Assessment and Plan 47 year-old female with Endometrial cancer with markedly enlarged uterus S/p uterine artery embolization by IR 11/23/17 Discontinue STORE CLERK CASHIER pump and starts [place] when necessary Plan for total abdominal hysterectomy next week Appreciate input from DIESEL LOCOMOTIVE FIRER/FIREMAN oncology H/o heavy irregular bleeding and anemia she was also transfused in the past h/ h stable, Monitor H&H stable Hypertension Continue with outpatient medication Discharge Planning Discharge patient to home Condition on discharge: Improved Regular Diet as tolerated Ad Yanique activity Rx written:[place] Follow-up with primary care physician in 1 week [facility] On[facility] next week for Christian Oliveira MD Nov 24, 2017 09:51
[2017-11-24] MEDS ORDERED: DOCU8.6T PO (09:52)
[2017-11-24] MEDS ORDERED: HYDR-3516 PO (09:52)
[2017-11-24] MEDS ORDERED: ACETAMINOPHEN/HYDROcodone 325 MG/5 MG TAB PO PRN (10:00)
--- NOTE | 2017-11-24 11:51 | MB ---
cc: Bibi Hurley MD,Sylvie Martinez,Gunjan Diego,Juanita Villaseñor MD DATE OF CONSULT: PHYSICIAN REQUESTING CONSULT: Gunjan Martinez MD REASON FOR CONSULTATION: Large uterine mass, status post bilateral uterine artery embolization, forthcoming surgery. HISTORY: This is a 47-year-old female who is seen by us in consultation recently. She has a diagnosis of endometrial cancer. She has surgery scheduled this forthcoming Monday. Concerns that were expressed were an abnormal EKG for which she has seen cardiology, cleared her for surgery and anesthesia, although Dr. Diego feels she is still at moderate risk for noncardiac surgery. She provides a letter from him, and she is make aware of her classification of moderate risk. Anatomically, the uterus is markedly enlarged from multiple leiomyomas, increasing risk of blood loss and problems related to surgery and she was counseled regarding the potential value of preoperative uterine artery embolization in an effort to reduce intraoperative blood loss. She has undergone that procedure yesterday. She tolerated it well. She did well overnight. Initially, she had fairly significant pain, which has been much better controlled, and she reports this morning, it is much improved and she is hoping to be able to go home later today. She is seen now in consultation for further evaluation, recommendations regarding these findings. PAST MEDICAL HISTORY: Notable for recent diagnosis of endometrial cancer, large uterine fibroids, which she has known since at least 2002. She has had prior pneumonia. PAST SURGERY: Includes tubal ligation 1996. She has had maxillofacial procedure 1979. FAMILY HISTORY: Noncontributory. SOCIAL HISTORY: She is . She is not a current smoker. GYNECOLOGIC HISTORY: Two pregnancies, 2 vaginal births. ALLERGIES: NO KNOWN DRUG ALLERGIES. MEDICATIONS: Her current prescription medication is megestrol acetate. She takes iron supplements, multivitamins. REVIEW OF SYSTEMS: As per history of present illness. PHYSICAL EXAMINATION: She is afebrile. Pulse 78-80, respirations 16-18, blood pressure 135-154 over 63-78, O2 saturations greater than or equal to 96%. She is alert and oriented x 3. Pupils equal, round and reactive to light. SKIN: Good color, warm and dry. ABDOMEN: Nonacute. Uterus is palpably enlarged with thinning above umbilicus. It is wide in the fundus and lower uterine segment. Her abdomen, there is no rebound, no guarding, nonacute. EXTREMITIES: Neurovascular intact. No palpable cords. GYNECOLOGIC: Deferred given recent exams. She has had no current bleeding. PSYCHIATRIC: Her affect is appropriate. She understands the pertinent aspects of our discussion. NEUROLOGIC: She has no focal deficit. No movement restrictions. Time spent in discussion with her reviewing the findings in her case to date. I am pleased that the embolization went well. We reviewed again the findings, the plan surgery on Monday via exploratory laparotomy, midline vertical incision, may need to be taken above the umbilicus. The plan is to remove the uterus, cervix, tubes and ovaries. Understands the reproductive and menopausal ramifications of this procedure. She also understands that the indication for surgery primarily is the endometrial cancer and in the absence of that diagnosis, then the symptomatic fibroids are a secondary issue. We will send the specimens for frozen section analysis, depending on the extent of the tumor. If there are risk factors that raise the possibility of extrauterine disease, we may recommend pelvic and/or possibly periaortic lymph node biopsies or full lymphadenectomy. We will also assist the peritoneal anatomy, look for any obvious metastatic disease, take biopsies as indicated. The anticipated recovery time and related issues are discussed. Questions are asked and answered. She expressed good understanding. ASSESSMENT: 1. Endometrial cancer grade I but with history of prior heavy bleeding and transfusion-dependent anemia. 2. Objective data shows that her hemoglobin couple of weeks ago was 11.7. 3. Forthcoming surgery. 4. Status post bilateral uterine artery embolization, doing well. 5. Extensive discussion. PLAN: 1. Move forward with surgery as scheduled on Monday. 2. She will be typed and crossed for 4 units prior to surgery. Thank you for the excellent medical care. MD KALPESH Omalley/ZHENG , 08:17 AM , 11:49 AM
== END 2017-11-24 13:40 | disposition home or self-care (01) | DRG 750 ==
LOC: HROP 08:18 → HRIP 08:19 → HROP 16:00 → N07A 16:07
PROVIDERS: ADMIT Hospitalist; ATTEND Hospitalist
PROC: 04LF3DU Occlusion of Left Uterine Artery with Intraluminal Device, Percutaneous Approach (ICD-10-PCS; principal; 2017-11-23)
PROC: 04LE3DT Occlusion of Right Uterine Artery with Intraluminal Device, Percutaneous Approach (ICD-10-PCS; 2017-11-23)
PROC: B41GYZZ Fluoroscopy of Left Lower Extremity Arteries using Other Contrast (ICD-10-PCS; 2017-11-23)
PROC: B41FYZZ Fluoroscopy of Right Lower Extremity Arteries using Other Contrast (ICD-10-PCS; 2017-11-23)
DX: C54.1 Malignant neoplasm of endometrium (principal); I10 Essential (primary) hypertension; D63.0 Anemia in neoplastic disease; N85.2 Hypertrophy of uterus; N92.4 Excessive bleeding in the premenopausal period; D25.9 Leiomyoma of uterus, unspecified; Z23 Encounter for immunization; Z87.891 Personal history of nicotine dependence
CPT/HCPCS: 36247; 37243; 75736; 76937; 90732; 99152; 99153; C1769; C1887; C1894; J0690; J1170; J1885; J2250; J2270; J2405; J3010; J7030; Q9967

== ENCOUNTER 2017-11-27 05:45 | Inpatient (IN) | payer OTHER ==
[~2017-11-27] VITALS: Ht 172.7 cm; Wt 125.0 kg
[~2017-11-27 05:45] MED LIST changes: +AMLO5 PO; +DOCU8.6T PO; +HYDR-3516 PO
[2017-11-27] MEDS ORDERED: SODIUM CHLORID 0.9% 500 ML IV PRN (06:15)
[2017-11-27] MEDS ORDERED: SODIUM CHLORIDE FLUSH PRN IV FLUSH (06:15)
[2017-11-27] MEDS ORDERED: HEPARIN SODIUM - SQ 10,000 UNITS/ML VIAL SQ PRN (06:15)
[2017-11-27] MEDS ORDERED: METOPROLOL TARTRATE 25 MG TAB PO PRN (06:15)
[2017-11-27] MEDS ORDERED: ceFAZolin 2 GM PREMIX 50 ML IV SCH (06:15)
[2017-11-27] MEDS ORDERED: POVIDONE IODINE 5% (ANTISEPSIS KIT) 4 APPLICATIONS EACH NARE PRN (06:15)
[2017-11-27] MEDS ORDERED: LACTATED RINGER'S 1000 ML IV PRN (06:15)
[2017-11-27] MEDS ORDERED: CHLORHEXIDINE GLUCONATE 2 % 1 PACK (2 CLOTHS) TOPICAL PRN (06:15)
[2017-11-27] MEDS ORDERED: LIDOCAINE 1%/EPINEPHrine 1:100,000 SOLN 30 ML VIAL ONE (06:59)
[2017-11-27] MEDS ORDERED: HYDROmorphone HCL PF 2 MG/ML VIAL ONE (07:04)
[2017-11-27] MEDS ORDERED: ACETAMINOPHEN 1000 MG/100 ML 100 ML IV ONE (07:04)
[2017-11-27] MEDS ORDERED: SODIUM CHLORIDE FLUSH BID IV FLUSH SCH (09:00)
[2017-11-27] MEDS ORDERED: ceFAZolin INJ 1,000 MG VIAL IV ONE ×2 (11:44→12:00)
[2017-11-27] MEDS ORDERED: GLYCOPYRROLATE 1 MG/5 ML SYRINGE IV PUSH ONE (12:00)
[2017-11-27] MEDS ORDERED: NORMOSOL R INJ 1,000 ML IV ONE (12:00)
[2017-11-27] MEDS ORDERED: ONDANSETRON HCL 4 MG/2 ML VIAL IV ONE (12:00)
[2017-11-27] MEDS ORDERED: oxyCODONE/ACETAMINOPHEN 5 MG/325 MG TAB PO PRN ×2 (12:00)
[2017-11-27] MEDS ORDERED: VECURONIUM BROMIDE 20 MG VIAL IV ONE (12:00)
[2017-11-27] MEDS ORDERED: DEXAMETHASONE SOD PHOS 4 MG/ML VIAL IV ONE (12:00)
[2017-11-27] MEDS ORDERED: PROPOFOL 200 MG/20 ML AMP IV ONE (12:00)
[2017-11-27] MEDS ORDERED: ROCURONIUM INJ 50 MG/5 ML SYRINGE IV PUSH ONE (12:00)
[2017-11-27] MEDS ORDERED: LIDOCAINE HCL 1% PF 5 ML SYRINGE OTHER ONE (12:00)
[2017-11-27] MEDS ORDERED: SODIUM CHLORIDE 0.9% FLUSH 10 ML FLUSH IV FLUSH PRN (12:00)
[2017-11-27] MEDS ORDERED: LACTATED RINGER'S 1000 ML INJ 1,000 ML IV ONE (12:00)
[2017-11-27] MEDS ORDERED: NALOXONE HCL 0.4 MG/ML AMP IV PUSH PRN (12:00)
[2017-11-27] MEDS ORDERED: diphenhydrAMINE HCL 25 MG CAP PO PRN (12:00)
[2017-11-27] MEDS ORDERED: LORazepam 0.5 MG TAB PO PRN (12:00)
[2017-11-27] MEDS ORDERED: ONDANSETRON HCL 4 MG/2 ML VIAL IVP PRN (12:00)
[2017-11-27] MEDS ORDERED: NEOSTIGMINE 5 MG/5 ML SYRINGE IV PUSH ONE (12:00)
[2017-11-27] MEDS: D5-1/2 NS + KCL 20 MEQ INJ 1,000 ML IV SCH ×2 (12:30→22:58)
[2017-11-27] MEDS ORDERED: DO NOT ADM ANY ANTICOAGULANT DRUGS PRN (12:45)
[2017-11-27] MEDS: KETOROLAC TROMETHAMINE 30 MG/ML (IVP) VIAL IVP SCH ×2 (13:00→18:53)
[2017-11-27] MEDS ORDERED: *morphine SULFATE 4 MG/ML PERIprocedure ONLY ONE (13:11)
[2017-11-27] MEDS: MORPHINE SULFATE 30 MG/30 ML PCA IV SCH (13:29)
--- NOTE | 2017-11-27 15:34 | PD.ONC.PN ---
Subjective Subjective Remarks lump room supervisor/onc post op note pt is resting in PACU awaiting bed, no complaints using BALE OPENER denies n/v Objective Data Date Time Temp Pulse Resp B/P (MAP) Pulse Ox O2 Delivery O2 Flow Rate FiO2 11/27/17 15:18 15 11/27/17 15:17 15 11/27/17 14:45 83 16 145/62 (89) 97 Nasal Cannula 3 11/27/17 14:15 82 16 140/60 (86) 97 Nasal Cannula 3 11/27/17 13:45 82 17 139/57 (84) 97 Nasal Cannula 3 11/27/17 13:30 80 15 147/67 (93) 97 Nasal Cannula 3 11/27/17 13:29 15 11/27/17 13:15 80 15 144/65 (91) 97 Nasal Cannula 3 11/27/17 13:00 85 15 146/65 (92) 92 Nasal Cannula 3 11/27/17 12:43 99.1 89 15 143/65 (91) 92 Nasal Cannula 3 11/27/17 06:31 98.0 95 16 150/81 (104) 96 11/27/17 11/27/17 11/27/17 07:00 15:00 23:00 Intake Total 3200 ml Output Total 1075 ml Balance 2125 ml Administered Medications Medications (Trade) Dose Ordered Sig/Christine Route PRN Reason Start Time Stop Time Status Last Admin Dose Admin Lactated Ringer's 1,000 ml @ 30 mls/hr Q24H PRN IV SEE LABEL COMMENTS 11/27/17 06:15 11/30/17 06:14 11/27/17 07:00 Povidone Iodine (Betadine 5% Antisepsis Kit) 1 applic COMMERCIAL REAL ESTATE ASSOCIATE PRN EACH NARE SEE LABEL COMMENTS 11/27/17 06:15 11/30/17 06:14 11/27/17 07:00 Heparin Sodium (Porcine) (Heparin Inj) 5,000 units COMMERCIAL REAL ESTATE ASSOCIATE PRN SQ GIVE PRE-OP COMMERCIAL REAL ESTATE ASSOCIATE TO OR 11/27/17 06:15 11/27/17 22:00 11/27/17 07:00 Cefazolin Sodium/ Dextrose 50 ml @ 100 mls/hr COMMERCIAL REAL ESTATE ASSOCIATE IV 11/27/17 06:15 11/30/17 06:14 11/27/17 07:15 Potassium Chloride/Dextrose/ Sod Cl 1,000 ml @ 100 mls/hr Q10H IV 11/27/17 12:30 11/27/17 12:30 Ketorolac Tromethamine (Toradol Inj) 30 mg Q6H IVP 11/27/17 13:00 11/28/17 07:01 11/27/17 13:00 Morphine Sulfate (Morphine 1 Mg/ ml BALE OPENER) 30 mg UNSCH IV 11/27/17 12:00 11/27/17 13:29 Objective Remarks GENERAL: Well-nourished, well-developed patient. SKIN: Warm and dry. HEAD: Normocephalic. EYES: No scleral icterus. No injection or drainage. CARDIOVASCULAR: Regular rate and rhythm without murmurs. RESPIRATORY: Breath sounds equal bilaterally. No accessory muscle use. GASTROINTESTINAL: Abdomen dressing c/d/i EXTREMITIES: teds and scds MUSCULOSKELETAL: Adequate muscle tone. NEUROLOGICAL: Awake, alert, and oriented x3. Assessment/Plan Problem List: (1) Endometrial cancer ICD Codes: C54.1 - Malignant neoplasm of endometrium Plan: s/p x lap hysterectomy with BSO post op orders in EMR BALE OPENER for pain ADAT continue lopez till POD #2 OOB to chair tomorrow anticipate discharge in next 2-3 days Anali Grewal Nov 27, 2017 15:33
[2017-11-27 16:30] VITALS: BP 141/61; PULSE 80; RESP 18; TEMP 96.8; O2SAT 96
[2017-11-27 20:00] VITALS: BP 123/54; PULSE 73; RESP 18; TEMP 96.3; O2SAT 94
[2017-11-27] MEDS: SODIUM CHLORIDE 0.9% FLUSH 10 ML FLUSH IV FLUSH SCH (20:54)
[2017-11-27] MEDS: DOCUSATE SODIUM 50 MG/SENNA 8.6 MG TAB PO SCH (20:54)
[2017-11-27] MEDS: PCA - TOTAL MG MORPHINE DELIVERED PER SHIFT SCH (22:00)
[2017-11-28] VITALS (7 sets, daily range): BP systolic 120–140; BP diastolic 59–63; PULSE 71–79; RESP 16–17; TEMP 96.2–97.9; O2SAT 96–98
[2017-11-28] MEDS: KETOROLAC TROMETHAMINE 30 MG/ML (IVP) VIAL IVP SCH ×2 (00:58→05:52)
[2017-11-28] MEDS: MORPHINE SULFATE 30 MG/30 ML PCA IV SCH ×2 (01:45→14:37)
[2017-11-28] MEDS: PCA - TOTAL MG MORPHINE DELIVERED PER SHIFT SCH ×2 (05:53→14:00)
[2017-11-28 07:29] LABS: AUTOMATED NEUTROPHIL # 9.8 TH/MM3 (1.8-7.7); BASOPHIL % 0.2 % (0.0-2.0); EOSINOPHIL % 0.3 % (0.0-4.0); HEMATOCRIT 26.7 % (35.0-46.0); HEMOGLOBIN 8.7 GM/DL (11.6-15.3); LYMPH % 8.5 % (9.0-44.0); MEAN CELL VOLUME 77.2 FL (80.0-100.0); MEAN CORPUSCULAR HEMOGLOBIN 25.2 PG (27.0-34.0); MEAN CORPUSCULAR HGB CONC 32.6 % (32.0-36.0); MEAN PLATELET VOLUME 7.4 FL (7.0-11.0); MONO % 9.3 % (0.0-8.0); MONOCYTE # 1.1 TH/MM3 (0-0.9); NEUT % 81.7 % (16.0-70.0); PLATELET COUNT 446 TH/MM3 (150-450); RED BLOOD COUNT 3.46 MIL/MM3 (4.00-5.30); RED CELL DISTRIBUTION WIDTH 16.3 % (11.6-17.2)
[2017-11-28] MEDS: SODIUM CHLORIDE 0.9% FLUSH 10 ML FLUSH IV FLUSH SCH ×2 (07:54→20:10)
[2017-11-28] MEDS: DOCUSATE SODIUM 50 MG/SENNA 8.6 MG TAB PO SCH ×2 (07:54→20:10)
[2017-11-28] MEDS: amLODIPine BESYLATE 5 MG TAB PO SCH (07:54)
[2017-11-28 07:56] LABS: BICARBONATE 28.6 MEQ/L (21.0-32.0); CALCIUM 8.1 MG/DL (8.5-10.1); CREATININE 0.53 MG/DL (0.50-1.00)
--- NOTE | 2017-11-28 08:40 | HHI.PR ---
Subjective . no new c/o pain c/w surgery Objective . afeb, vss uop> 50 ml/hr oob to chair cta, rrr soft, clean dry program advocate no bleeding Assessment/Plan . pod #1 doing well hgb 8.7 findings, preliminary path discussed Q&A, cpm oob, spirometry re-check h/h Bibi Hurley MD Nov 28, 2017 08:40
[2017-11-28] MEDS: D5-1/2 NS + KCL 20 MEQ INJ 1,000 ML IV SCH ×2 (09:15→17:24)
--- NOTE | 2017-11-28 09:41 | MP ---
cc: Bibi Hurley MD, Geeta Provider,Primary Care Sylvie Balderas MD DATE OF OPERATION: 11/27/2017 PREOPERATIVE DIAGNOSIS: 1. Endometrial cancer. 2. Markedly enlarged uterus. POSTOPERATIVE DIAGNOSIS: 1. Endometrial cancer. 2. Markedly enlarged uterus. PROCEDURE: Exploratory laparotomy, total abdominal hysterectomy, bilateral salpingo-oophorectomy. SURGEON: Bibi Hurley MD BOTTOM PAINTER: Damian rn first assistant. ANESTHESIA: General endotracheal. ESTIMATED BLOOD LOSS: 450 cc. URINE OUTPUT: 475 cc. INTRAVENOUS FLUIDS: 2300. HISTORY: This is a 47-year-old female who in August of last year presented to the emergency room after heavy prolonged vaginal bleeding, found to have hemoglobin of 5.5, was transfused, led to further evaluation. Evaluation included imaging that showed a markedly enlarged uterus thought to be enlarged from leiomyomas, adenomyosis, but prominent endometrial stripe and biopsy showed polyps with a grade I endometrial cancer. She was counseled regarding these findings, considered for surgery due to markedly enlarged uterus, hemorrhagic nature and risk of blood loss. She underwent bilateral uterine artery embolization last week in preparation for surgery. She was seen again yesterday in the preop holding area with family members. The findings were again reviewed. Plan of care was discussed. Questions were answered. She expressed good understanding and agreed. She understands the reproductive and menopausal ramifications of the procedure. FINDINGS: The uterus is markedly enlarged, wide. It extends to the level of the umbilicus, maybe 20 cm in greatest height. It also is quite wide with the width of the uterus extending from sidewall to sidewall down into the lower uterine segment. Tubes and ovaries grossly appear normal. There were no appreciably enlarged pelvic or periaortic lymph nodes, no peritoneal implants. Liver, diaphragm edges were smooth. Omentum grossly appeared normal. Large and small bowel and adjacent mesentery were normal without implants. There were some subtle diverticulum without evidence of diverticulitis. There are adhesions in that the colon was adherent to the left pelvic sidewall overlying the left adnexal structures, subtle adhesions on the right side similar. Otherwise, the peritoneal cavity was without adhesions. Preliminary pathology showed necrotic changes consistent with recent embolization that was superficial endometrial cancer only noted. There was no overt evidence of myometrial invasion. There was no overt evidence of endocervical extension. MODIFIER/STATEMENT OF COMPLEXITY: Complexity of this case was significantly increased for 2 major reasons. One, she had a BMI of 43.7. Two, she had a markedly enlarged uterus, clearly greater than 250 g. This caused prolonged dissection, increased complexity, and modifier should be applied accordingly. PROCEDURE: She was taken to the operating room, placed in dorsal lithotomy position. After general endotracheal administered, timeout was undertaken. She was identified by sight recognition and hospital ID ralf, and the proposed procedure was reviewed and confirmed. She was carefully positioned in padded Yellofin stirrups. Arms were out to the sides. Positioning was checked. There were no pressure points or malalignments. She was prepped and draped sterile fashion. Ioban used to cover the abdominal wall. Armijo catheter had been placed in the bladder and anesthesia stated we were ready to proceed with surgery after completing prepping and draping. Midline vertical incision made from the symphysis to the umbilicus, taken down to the level of the fascia. The fascia was entered. The rectus muscles were in the midline. The peritoneal cavity was entered. Preliminary assessment of the anatomy was undertaken. The large uterus could not clearly be brought up out of this abdominal incision, and if so, it occupied the entire space so that there was no space for dissection, so the incision was extended above the umbilicus and taken a couple of centimeters above the umbilicus. Bookwalter retractor was set up. Lap pads, Bookwalter retractor were used to assist in surgical exposure. Left round ligament doubly suture ligated, transected. Anterior and posterior leaflets of the broad ligament were opened. Adhesions were taken down. Sharp dissection to retract the colon from its adherence against the left pelvic sidewall to mobilize the colon to free the left pelvic structures. A rent in the peritoneum was made below the left uteroovarian ligament, and dissection was carried out proximally, opening the peritoneum to elevate the gonadal vessels and to retract and withdraw the ureter posteriorly. The infundibulopelvic ligament was doubly clamped, cut and doubly suture ligated. The anterior and posterior peritoneum were opened along the lower part of the uterus, and skeletonization of the uterine vessels was carried out. Attention was directed to the right side. The right round ligament similarly doubly suture ligated, transected. Anterior and posterior leaflets of the broad ligament were opened. Adhesions were taken down from the right side. A window was made in the peritoneum below the right uteroovarian ligament and dissected proximally, elevating the infundibulopelvic ligament, which dissected and retracted the ureter posteriorly, as the right infundibulopelvic ligament was doubly clamped, cut, and suture ligated. Anterior and posterior peritoneum dissected off the uterus anterior and posteriorly. The uterine vessels were skeletonized. Now that the vessels were exposed bilaterally, they were doubly clamped and then back clamped bilaterally, transected and doubly suture ligated bilaterally. The cardinal paracervical and uterosacral ligaments were taken down in a stepwise fashion by clamp, cutting, and suture ligating these pedicles with 0 Vicryl suture with exposure being challenging throughout due to the wide nature of the uterus and the lower uterine segment, but meticulous dissection led down to below the level of the cervix where curved Morgan clamps were placed below the cervix at the lateral vaginal angle. This specimen was cut below the cervix, the cervix from the upper vagina. It was inspected. The entire cervix was removed, and this was sent to pathology for histopathologic evaluation. The vaginal cuff was supported and rendered hemostatic with interrupted [id number] 0 Vicryl sutures. Bleeding was rendered hemostatic with interrupted 3-0 Vicryl sutures or focal cautery. The pelvis was thoroughly irrigated. All sites noted to be satisfactorily hemostatic. There was a good margin between the bladder flap and the vaginal cuff suture line. Good peristalsis of ureters bilaterally. The preliminary pathology came back showing no evidence of myometrial invasion; therefore, it was felt the risk of further dissection, lymph node dissection exceeded potential benefit as the risk of extrauterine disease was remotely low. Accordingly, the lap pads were removed after Surgicel hemostatic agent was placed across the vaginal cuff and lateral pelvic sidewalls. All the lap pads were removed. The Bookwalter retractor was disassembled. Visual and manual inspection confirmed there were no remaining foreign objects in the vagina other than the intentionally placed hemostatic agent. Preliminary counts were correct. The anatomy was again explored with findings as described above. No other abnormality detected, and attention was directed toward closing. The abdominal wall closed with a 0 looped PDS in a running continuous modified Smead-Gonzalez fashion, starting at the apices, upper and lower apices, and bringing the sutures to the midpoint where the sutures were tied securely. The knot was buried below the fascia. The subcutaneous tissue was irrigated. Christiano's fascia reapproximated with interrupted 2-0 Vicryl sutures, and then the skin edges were closed with a 3-0 Vicryl subcuticular closure. Steri-Strips and dry sterile dressing were placed over the incision. She was returned to dorsal supine position. Final counts were correct. She was pending reversal of anesthesia when I left the operating room, depreciated to the post-anesthesia care unit, and to speak to family members who were waiting in the family waiting room. MD KALPESH Omalley/ZHENG , 08:52 AM , 09:39 AM
[2017-11-28 11:49] LABS: HEMATOCRIT 26.3 % (35.0-46.0); HEMOGLOBIN 8.8 GM/DL (11.6-15.3); MEAN CORPUSCULAR HEMOGLOBIN 25.6 PG (27.0-34.0); MEAN CORPUSCULAR HGB CONC 33.3 % (32.0-36.0); MEAN PLATELET VOLUME 7.4 FL (7.0-11.0); PLATELET COUNT 420 TH/MM3 (150-450); RED BLOOD COUNT 3.41 MIL/MM3 (4.00-5.30); RED CELL DISTRIBUTION WIDTH 16.5 % (11.6-17.2)
[2017-11-28] MEDS: KETOROLAC TROMETHAMINE 30 MG/ML (IVP) VIAL IV PUSH SCH (17:24)
[2017-11-29] VITALS: BP 124/60; PULSE 74; RESP 17; TEMP 96; O2SAT 97
[2017-11-29] MEDS: KETOROLAC TROMETHAMINE 30 MG/ML (IVP) VIAL IV PUSH SCH ×4 (00:23→17:37)
[2017-11-29] MEDS: PCA - TOTAL MG MORPHINE DELIVERED PER SHIFT SCH ×4 (00:24→21:14)
[2017-11-29 04:00] VITALS: BP 138/65; PULSE 77; RESP 17; TEMP 97.1; O2SAT 97
[2017-11-29] MEDS: D5-1/2 NS + KCL 20 MEQ INJ 1,000 ML IV SCH ×2 (04:59→14:30)
--- NOTE | 2017-11-29 07:36 | PD.ONC.PN ---
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 is working to control pain lopez D/Cd this morning denies any n/v has been OOB Objective Data Date Time Temp Pulse Resp B/P (MAP) Pulse Ox O2 Delivery O2 Flow Rate FiO2 11/29/17 06:00 18 11/29/17 04:00 97.1 77 17 138/65 (89) 97 11/29/17 00:24 18 11/29/17 00:00 96.0 74 17 124/60 (81) 97 11/28/17 21:41 21 11/28/17 20:00 96.2 79 17 135/63 (87) 96 11/28/17 16:00 97.9 75 17 135/63 (87) 97 11/28/17 14:42 16 11/28/17 14:37 16 11/28/17 14:00 16 11/28/17 12:00 97.5 72 17 133/60 (84) 96 11/28/17 08:00 96.7 77 16 140/60 (86) 96 11/28/17 07:50 97 11/29/17 11/29/17 11/29/17 07:00 15:00 23:00 Intake Total 1240 ml Output Total 3400 ml Balance -2160 ml Result Diagram: 11/28/17 1130 11/28/17 0700 Laboratory Results Laboratory Tests Test 11/28/17 11:30 White Blood Count 12.0 TH/MM3 Red Blood Count 3.41 MIL/MM3 Hemoglobin 8.8 GM/DL Hematocrit 26.3 % Mean Corpuscular Volume 77.0 FL Mean Corpuscular Hemoglobin 25.6 PG Mean Corpuscular Hemoglobin Concent 33.3 % Red Cell Distribution Width 16.5 % Platelet Count 420 TH/MM3 Mean Platelet Volume 7.4 FL Administered Medications Medications (Trade) Dose Ordered Sig/Christine Route PRN Reason Start Time Stop Time Status Last Admin Dose Admin Lactated Ringer's 1,000 ml @ 30 mls/hr Q24H PRN IV SEE LABEL COMMENTS 11/27/17 06:15 11/30/17 06:14 11/27/17 07:00 Povidone Iodine (Betadine 5% Antisepsis Kit) 1 applic [employer] PRN EACH NARE SEE LABEL COMMENTS 11/27/17 06:15 11/30/17 06:14 3/5/18 07:00 Cefazolin Sodium/ Dextrose 50 ml @ 100 mls/hr [employer] IV 11/27/17 06:15 11/30/17 06:14 11/27/17 07:15 Amlodipine Besylate (Norvasc) 5 mg DAILY PO 11/28/17 09:00 11/28/17 07:54 Senna/Docusate Sodium (Roxanna-Colace) 1 tab BID PO 11/27/17 21:00 11/28/17 20:10 Potassium Chloride/Dextrose/ Sod Cl 1,000 ml @ 100 mls/hr Q10H IV 11/27/17 12:30 11/29/17 04:59 Morphine Sulfate (Morphine 1 Mg/ ml [employer] SUPERVISOR) 30 mg UNSCH IV 11/27/17 12:00 11/28/17 14:37 GEOTHER[employer] POWERPLANT SUPERVISOR Dosage Infused (Pha) 1 Q8HR .XX 11/27/17 14:00 11/29/17 06:00 Ketorolac Tromethamine (Toradol Inj) 30 mg Q6HR IV PUSH 11/28/17 18:00 11/30/17 18:00 11/29/17 05:59 Objective Remarks GENERAL: Well-nourished, well-developed patient. SKIN: Warm and dry. HEAD: Normocephalic. EYES: No scleral icterus. No injection or drainage. CARDIOVASCULAR: Regular rate and rhythm without murmurs. RESPIRATORY: Breath sounds equal bilaterally. No accessory muscle use. GASTROINTESTINAL: Abdomen soft, dressing C/D/I EXTREMITIES: No cyanosis, or edema. MUSCULOSKELETAL: Adequate muscle tone. NEUROLOGICAL: No obvious focal deficit. Awake, alert, and oriented x3. PSYCHIATRIC: Appropriate mood and affect; insight and judgment normal. Assessment/Plan Problem List: (1) Endometrial cancer ICD Codes: C54.1 - Malignant neoplasm of endometrium Plan: POD #2 s/p x lap hysterectomy with BSO AM labs pending will continue GE[employer] POWERPLANT SUPERVISOR for pain control, will change to oral tomorrow for anticipation D/C home on Monday advanced diet to adult regular OOB to ambulate IV Toradol continued for the next 48 hours if Ms. Rose wishes to change to oral pain meds later today she will inform her RN. Attending Statement discussed with Dr. Hurley and he is in agreement. Anali Grewal 7, 2018 07:36
[2017-11-29 08:00] VITALS: BP 136/65; PULSE 74; RESP 17; TEMP 97.8; O2SAT 94
[2017-11-29] MEDS: SODIUM CHLORIDE 0.9% FLUSH 10 ML FLUSH IV FLUSH SCH ×2 (08:04→19:42)
[2017-11-29] MEDS: amLODIPine BESYLATE 5 MG TAB PO SCH (08:04)
[2017-11-29] MEDS: DOCUSATE SODIUM 50 MG/SENNA 8.6 MG TAB PO SCH ×2 (08:04→21:13)
[2017-11-29 08:30] LABS: HEMATOCRIT 25.9 % (35.0-46.0); HEMOGLOBIN 9.3 GM/DL (11.6-15.3); MEAN CELL VOLUME 76.6 FL (80.0-100.0); MEAN CORPUSCULAR HEMOGLOBIN 27.5 PG (27.0-34.0); MEAN CORPUSCULAR HGB CONC 35.9 % (32.0-36.0); MEAN PLATELET VOLUME 7.7 FL (7.0-11.0); PLATELET COUNT 439 TH/MM3 (150-450); RED BLOOD COUNT 3.39 MIL/MM3 (4.00-5.30); RED CELL DISTRIBUTION WIDTH 16.8 % (11.6-17.2); WHITE BLOOD COUNT 9.5 TH/MM3 (4.0-11.0)
[2017-11-29 08:54] LABS: BICARBONATE 25.1 MEQ/L (21.0-32.0); CALCIUM 8.2 MG/DL (8.5-10.1); CREATININE 0.53 MG/DL (0.50-1.00)
[2017-11-29] MEDS: MORPHINE SULFATE 30 MG/30 ML PCA IV SCH (09:47)
[2017-11-29 12:00] VITALS: BP_SYST 137; BP_SYST 139; BP_DIAS 68; BP_DIAS 69; PULSE 77; RESP 18; TEMP 97.6; O2SAT 95; O2SAT 97
[2017-11-29 16:00] VITALS: BP 152/70; PULSE 73; RESP 17; TEMP 97.6; O2SAT 99
[2017-11-29 20:00] VITALS: BP 152/62; PULSE 77; RESP 18; TEMP 95.9; O2SAT 96
[2017-11-30] VITALS: BP 154/70; PULSE 79; RESP 18; TEMP 97.9; O2SAT 97
[2017-11-30] MEDS: KETOROLAC TROMETHAMINE 30 MG/ML (IVP) VIAL IV PUSH SCH ×2 (00:15→06:09)
[2017-11-30] MEDS: D5-1/2 NS + KCL 20 MEQ INJ 1,000 ML IV SCH (00:17)
[2017-11-30 04:00] VITALS: BP 146/69; PULSE 75; RESP 18; TEMP 97.3; O2SAT 96
[2017-11-30] MEDS: PCA - TOTAL MG MORPHINE DELIVERED PER SHIFT SCH (06:00)
[2017-11-30] MEDS ORDERED: OXYC1TAB63 PO (07:29)
--- NOTE | 2017-11-30 07:49 | MD ---
cc: Bibi Hurley MD,Sylvie Jordan,Juanita Clement DATE OF DISCHARGE: DATE OF ADMISSION: 11/27/3017 DATE OF DISCHARGE: 11/30/2017 PROCEDURE: 11/27/2017, exploratory laparotomy, total abdominal hysterectomy, bilateral salpingo-oophorectomy. DIAGNOSIS: Endometrial cancer, markedly enlarged uterus. HOSPITAL COURSE: She did well in the hospital postop recovery, hemodynamically stable, tolerating oral intake, good renal function. Labs stabilized. H and H yesterday 9.3 and 25.9. Electrolytes, BUN and creatinine 5 and 0.53. She has been walking the hallways, voiding without difficulty. PHYSICAL EXAMINATION: LUNGS: Clear. CARDIOVASCULAR: Regular rate and rhythm. ABDOMEN: Soft, incision clean and dry. GYNECOLOGIC: No bleeding. EXTREMITIES: Nontender. ASSESSMENT: Postoperative day #3. Findings at the time of surgery, preliminary pathology reviewed. Activity restrictions discussed. Medications reviewed. Questions were asked and answered. She expressed good understanding of our plan. Anticipate she will meet criteria for discharge to home as we switch her to oral pain medication. She is to contact our office to ensure she has followup scheduled 2 weeks and contact our office sooner should she have any questions or problems. MD KALPESH Omalley/STEW , 07:34 AM , 07:47 AM
[2017-11-30 08:00] VITALS: BP 145/68; PULSE 66; RESP 19; TEMP 97.4; O2SAT 96
[2017-11-30] MEDS: DOCUSATE SODIUM 50 MG/SENNA 8.6 MG TAB PO SCH (08:20)
[2017-11-30] MEDS: amLODIPine BESYLATE 5 MG TAB PO SCH (08:21)
[2017-11-30] MEDS: SODIUM CHLORIDE 0.9% FLUSH 10 ML FLUSH IV FLUSH SCH (08:21)
[2017-11-30 09:24] VITALS: O2SAT 96
== END 2017-11-30 10:41 | disposition home or self-care (01) | DRG 740 ==
LOC: HSDI 05:45 → N07A 16:22
PROVIDERS: ADMIT Obstetrics & Gynecology Gynecologic Oncology; ATTEND Obstetrics & Gynecology Gynecologic Oncology
PROC: 0UT70ZZ Resection of Bilateral Fallopian Tubes, Open Approach (ICD-10-PCS; 2017-11-27)
PROC: 0UT20ZZ Resection of Bilateral Ovaries, Open Approach (ICD-10-PCS; 2017-11-27)
PROC: 0WJJ0ZZ Inspection of Pelvic Cavity, Open Approach (ICD-10-PCS; 2017-11-27)
PROC: 0UT90ZZ Resection of Uterus, Open Approach (ICD-10-PCS; principal; 2017-11-27 07:34)
DX: C54.1 Malignant neoplasm of endometrium (principal); Z68.41 Body mass index [BMI] 40.0-44.9, adult; N85.2 Hypertrophy of uterus; E66.9 Obesity, unspecified
CPT/HCPCS: 80048; 85025; 85027; 86077; 86850; 86860; 86870; 86880; 86900; 86901; 86902; 86922; 88112; 88305; 88307; 88309; 88329; 88331; 94150; J0131; J0690; J1100; J1170; J1644; J1885; J2270; J2405; J2710; J3010; J3480; J7120